=== PATIENT | male | born 1960 | race Caucasian/White ===

== ENCOUNTER 2020-07-05 06:43 | Day surgery (SDC) | payer SELFPAY ==
[2020-06-30 14:26] LABS: Protime INR 1.02
[2020-06-30 14:29] LABS: Absolute Lymphocytes (CBC) 2.6 K/uL (0.7-4.9); Basophils % 0.6 % (0-1.3); Hematocrit 41.1 % (39.6-49.0); Lymphocytes % 39.4 % (15.3-44.8); MPV 9.6 fL (7.6-11.3); RBC Red Blood Cell Count 4.32 M/uL (4.33-5.43)
--- NOTE | 2020-06-30 14:31 | RAD REPORT ---
EXAM DESCRIPTION: RAD - Chest Pa And Lat (2 Views) - 06/30/2020 1:58 pm CLINICAL HISTORY: PRE-OP Chest pain. COMPARISON: No comparisons FINDINGS: The lungs are clear. The heart is normal in size. No displaced fractures. IMPRESSION: No acute or concerning finding suspected.
[2020-07-05] MEDS ORDERED: Ringers Lactate 1,000 ML IV ONE (07:03)
[2020-07-05] MEDS ORDERED: CEFAZOLIN/SWI 2gm 2 GM/20 ML SYR ONE (07:03)
[2020-07-05] MEDS ORDERED: ONDANSETRON 4 MG/2 ML VIAL ONE (07:13)
[2020-07-05] MEDS ORDERED: MIDAZOLAM HCL 2 MG/2 ML INJ ONE (07:27)
[2020-07-05] MEDS ORDERED: FENTANYL CITR 100 MCG/2 ML ONE ×3 (07:29→09:07)
[2020-07-05] MEDS ORDERED: propofoL 200 MG/20 ML VIAL IV ONE (07:29)
[2020-07-05] MEDS ORDERED: LIDOCAINE 1% MPF 5 ML VIAL ONE (07:29)
[2020-07-05] MEDS ORDERED: dexAMETHasone 10 MG/ML VIAL ONE (08:13)
[2020-07-05] MEDS ORDERED: KETOROLAC 30 MG/ML INJ ONE (08:13)
[2020-07-05] MEDS ORDERED: EPHEDRINE SULF 50 MG/ML VIAL ONE ×2 (08:15→08:24)
[2020-07-05] MEDS ORDERED: ROCURONIUM 50 MG/5 ML VIAL IV ONE (08:20)
[2020-07-05] MEDS ORDERED: NA CHLORIDE 0.9% 1,000 ML ONE (08:27)
--- NOTE | 2020-07-05 08:44 | RAD REPORT ---
EXAM DESCRIPTION: RAD - Urethrocystogrphy Retrograde - 07/05/2020 8:30 am CLINICAL HISTORY: ICD N 20.0 FINDINGS: Nine fluoroscopic spot images obtained. Fluoroscopy time 0.2 minutes Ureters were cannulated and contrast administered. Examination was performed by Dr Chavarria. Please re richelle to his report for additional findings
[2020-07-05] MEDS ORDERED: GEMCITABINE HCL 1,000 MG in NA CHLORIDE 0.9% 26.3 ML IVPB ONE (08:45)
[2020-07-05] MEDS ORDERED: NEOSTIGMINE 1 MG/ML -5 ML ONE (09:17)
[2020-07-05] MEDS ORDERED: GLYCOPYRROLATE 0.2 MG/ML SYR ONE (09:17)
[2020-07-05] MEDS ORDERED: PHENAZOPYRIDINE 100MG TAB PO ONE ×2 (09:41→10:07)
[2020-07-05] MEDS ORDERED: HYDROCODONE/APAP 5/325 MG TAB PO PRN (09:41)
[2020-07-05] MEDS ORDERED: OPIUM/BELLADONNA SUPPOS (30-16.2 MG) PR ONE (09:55)
[2020-07-05] MEDS ORDERED: ALBUTEROL 2.5 MG/3 ML NEB SOL ONE (10:02)
--- NOTE | 2020-07-05 10:03 | OP ---
Surgeon: DEWEY SHINE Preoperative Diagnosis: Bladder tumor. Postoperative Diagnosis: Bladder tumor - tumor involving the right posterior region of the bladder a pproximately 5-7 cm in diameter. Procedures: 1.Cystoscopy and bilateral retrograde pyelographies. 2.Transurethral resection of a bladder tumor greater than 5-7 cm. 3.Instillation of intravesical gemcitabine chemotherapy. Indication For Procedure: Mr. Philippe presented to the Urology Clinic with gross hematuria that had been ongoing for over a month. He finally sought urologic evaluation and was diagnosed with a bladde r tumor cystoscopically. An ultrasound had been performed, which revealed normal upper tracts, but w ithout contrast evaluation of the urothelium, that was yet required. He thus was consented for bilat eral retrograde pyelographies, TURBT and intravesical gemcitabine chemotherapy where the risks and si de effects of each approach were discussed including the potential increased reaction to the chemothe rapy to include allergic reactions, increased dysuria or irritability of the bladder, and the unlikel y side effects of hematologic defects from the chemotherapy. Procedure In Detail: The patient was consented in the preoperative holding area before being transfe rred to the operative suite where general anesthesia using an LMA was induced. He was given Ancef IV antimicrobial prophylaxis and pneumo boots were provided for DVT prophylaxis. He was placed in the lithotomy position, padded and secured to the table appropriately. The case was begun using a 22-Kory vth rigid cystoscope to traverse the urethra and into the bladder. The bladder tumor was noted to em anate from the right posterior lateral wall of the bladder, and the ureteral orifices were visualized and free of mucosal lesion surrounding. As a result, the right ureteral orifice was cannulated usin g a 5-Guamanian ureteral access catheter and a retrograde pyelogram was performed. Right retrograde pyelography: Using a 70:30 mixture of Omnipaque and saline, contrast was injected via the lumen of the 5-Guamanian ur eteral access catheter and did propagate easily up a nondilated ureter before entering a sharp collec ting system without evidence of pelvocaliectasis. There were no filling defects along the entirety o f the course of the ureters or within the renal pelvis or the calices. I then turned my attention to the left ureteral orifice, which was similarly cannulated with the 5-Guamanian ureteral access catheter . Again, contrast was injected to perform the left retrograde pyelogram. Left retrograde pyelography: Again, using the 70:30 mixture of Omnipaque and saline, contrast was injected via the 5-Guamanian ureter al access catheter and did propagate up a completely normal ureter before entering a collecting syste m without signs of pelvocaliectasis. There were no filling defects along the entirety of the course from the calices through the renal pelvis and down the ureter. As a result, the 5-Guamanian ureteral ac cess catheter was removed, and the cystoscope was removed. I then inserted a 26-Guamanian bipolar resectoscope under direct vision using a visual obturator into th e bladder with ease. Then using the bipolar loop, the bladder tumor was then resected in levels due to the extensive involvement of the mucosa of the bladder. The initial component of the bladder tumo r to debulk it was sent as a bladder tumor specimen. Subsequently, deeper resections which may have included some muscle tissue within the specimen were sent as a base of bladder tumor, level #1. I th en continued the resection carefully and resected any nodular or dense appearing tissue at the base o f the tumor until all the bladder tumor visible was removed. This was sent as a base of tumor level 2. A careful search of the remainder of the bladder was then undertaken, and no additional papillary tumors were noted throughout. As a result, the bladder was decompressed and any additional bleeding vessels were carefully fulgurated until no oozing of blood was noted even with the bladder completel y decompressed. Pictures were taken of the extent of the tumor, which was extensive involving likely 5-7 cm of the entire right posterior wall of the bladder. I then removed the resectoscope leaving t he bladder full and placed a 20-Guamanian 2-way urethral Ruiz catheter into his bladder with ease. 10 cc was placed into the balloon and his bladder was decompressed off fluid and urine. I then instille d 2 g of gemcitabine and 50 cc of normal saline into his bladder with ease. The catheter was clamped and connected to a leg bag to allow installation for 1-2 hours. The patient was then taken out of t he lithotomy position, awakened from general anesthesia, transferred to a stretcher and then transfer red to the recovery room in good condition. Complications: None. Discharge Disposition: He will maintain the urethral Ruiz catheter for at least 5-7 days to allow h ealing of the bladder due to the extensive nature of the resection. He will be discharged with a pre scription for Bactrim to be taken once a day for the next 7 days or at least 24 hours [address] the [address]ina ter is removed. The chemotherapy will be removed from his bladder between 1-2 hours after its instil lation, and the patient will be rotated by quarter turns for 1 hour while he is in the recovery room once awakened sufficiently. A belladonna and opiate suppository will be provided for local pain cont rol as well as a dose of Pyridium. The patient in addition to the Bactrim will be discharged with a prescription for [place]/Vicodin 5 mg for pain control. Subsequent followup of the pathology will be d etermined to occur in approximately 2-3 weeks if the pathology is not available at the time the patie nt shows for his voiding trial in 5-7 days. GLENDY/SHAHIDA Voice ID: [id number] Report ID: [id number]
[2020-07-05 12:53] VITALS: BP 126/83; TEMP 97.4; O2SAT 96
--- OUTSIDE RECORDS SUMMARY | 2020-07-06 02:44 | XMS REPORT | Continuity of Care Document ---
:1960 Author Organization [facility] t Address [address] [place] [address] Care Team Providers Name Role Phone Unavailable Unavailable Unavailable Problems This patient has no known problems. Allergies, Adverse Reactions, Alerts This patient has no known allergies or adverse reactions. Medications This patient has no known medications. Procedures This patient has no known procedures. Encounters Start End Encounter Admission Attending Care Care Encounter Source Date/Time Date/Time Type Type Clinicians Facility Department ID 2020-06-30 2020-06-[address] [facility] [id number] [facility] 2020-06-17 2020-06-[address] [facility] [id number] [facility] 2020-06-16 2020-06-[address] [facility] [id number] [facility] 2020-05-17 2020-05-17 [id number] Results This patient has no known results.
--- OUTSIDE RECORDS SUMMARY | 2020-07-06 02:45 | XMS REPORT | Continuity of Care Document ---
:1960 Author Organization [facility] t Address [address] [place] [address] Care Team Providers Name Role Phone Unavailable [...] Clinicians Facility Department ID 2020-06-30 2020-06-30 Outpatient [facility] [id number] [facility] 2020-06-17 2020-06-17 Outpatient [facility] [id number] [facility] 2020-06-16 2020-06-16 Outpatient [facility] [id number] [facility] 2020-05-17 2020-05-17 [facility] [id number] Results This patient has no known results.
--- OUTSIDE RECORDS SUMMARY | 2020-07-06 02:45 | XMS REPORT ---
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 314276319 neoplasm of posterior wall of urinary bladder Problem Gross R31.0 Active confirmed 523648717 hematuria Problem Erectile F52.21 Active confirmed [id number] 91 disorder 00 Problem Genital A60.00 Active confirmed [id number] herpes ALLERGIES No Known Allergies ENCOUNTERS from 1960 to 2020-07-01 Encounter Location Date Provider Diagnosis [facility] [address] [address] 04 Jun, 2020 B[facility] Chavar[facility] [address] IMMUNIZATIONS No Information SOCIAL HISTORY Tobacco Use: Social History Observation Description Date Details (start date - stop date) Current Smoker Sex Assigned At : Social History Observation Description Sex Assigned At Unknown Alcohol Screen Question Answer Notes Did you have a drink containing alcohol in the past year? No Points 0 Interpretation Negative Tobacco Use/Smoking Question Answer Notes Are you a current smoker How many cigarettes a day do you smoke? 6-10 How often do you smoke cigarettes? every day REASON FOR REFERRAL No Information VITAL SIGNS No information MEDICATIONS Medication SIG (Take, Route, Notes Start Date End Date Status Frequency, Duration) Tamsulosin HCl 0.4 MG 1 capsule Orally Once a Apr, Jul, Active day for 30 day(s) Losartan Potassium 25 1 tablet Orally Once a Active MG day PROCEDURES No Information RESULTS No Results REASON FOR VISIT No Information Goals Section No Information Health Concerns No Information MEDICAL EQUIPMENT No Information MENTAL STATUS No Information FUNCTIONAL STATUS No Information ASSESSMENTS No Information PLAN OF TREATMENT Next Appt Details Provider Name:Buster Chavarria 08:00:00 AM, [address] [facility], [address] [address], [place], [address],
== END 2020-07-05 11:25 | disposition home or self-care (01) ==
LOC: OR 06:43
PROVIDERS: ATTEND Urology
PROC: 3E0K705 Introduction of Other Antineoplastic into Genitourinary Tract, Via Natural or Artificial Opening (ICD-10-PCS; 2020-07-05)
PROC: 0TBB8ZX Excision of Bladder, Via Natural or Artificial Opening Endoscopic, Diagnostic (ICD-10-PCS; principal; 2020-07-05 07:30)
PROC: BT14ZZZ Fluoroscopy of Kidneys, Ureters and Bladder (ICD-10-PCS; 2020-07-05 07:30)
DX: C67.9 Malignant neoplasm of bladder, unspecified (principal)
CPT/HCPCS: 36415; 51610; 71046; 74450; 80048; 82947; 85025; 85610; 87086; 87088; 88305; 88307; 93005; J0690; J1100; J2250; J2405; J2704; J2710; J3010; J7030; J7120; J9201

== ENCOUNTER 2020-08-27 15:52 | Emergency (ER) | payer OTHER, SELFPAY ==
--- OUTSIDE RECORDS SUMMARY | 2020-08-27 15:55 | XMS REPORT | Continuity of Care Document ---
:1960 Author Organization [facility] t Address [address] [place] [address] Care Team Providers Name Role Phone Tom GARCIAVin Primary Care Physician Vipul Barnes MD Attending Clinician Greyson Vazquez MD Attending Clinician Saul Laboy CRNA Attending Clinician VIPUL BARNES Attending Clinician Unavailable Linden Barnes MD Attending Clinician VIPUL BARNES Admitting Clinician Unavailable Payers Payer Name Policy Type Policy Effective Date Expiration Date Sour ce Number AMBETTERAMBETTER [id number] [id number] - Medical /2020-Present Center Problems Condition Condition Condition Status Onset Resolution Last Treating Co mments Source Name Details Category Date Date Treatment Clinician Date Malignant Malignant Disease Active [facility] neoplasm neoplasm 4- [facility] 00:00: Medical overlappin overlappin 00 Ce nter g sites of g sites of bladder bladder Allergies, Adverse Reactions, Alerts This patient has no known allergies or adverse reactions. Social History Social Habit Start Date Stop Date Quantity Comments Source Sex Assigned At [facility] Exposure to Not sure [facility] - SARS-CoV-2 (event) [facility] Cigarette 2020-08-26 2020-08-26 [facility] - pack-years 00:00:00 00:00:00 [facility] Tobacco use and 2020-08-26 2020-08-26 Never used [facility] - exposure 00:00:00 00:00:00 [facility] Alcohol intake 2020-08-26 2020-08-26 Ex-drinker [facility] [place] [facility] - 00:00:00 00:00:00 (finding) [facility] Cigarettes smoked 2020-08-26 2020-08-26 [facility] - current (pack per 00:00:00 00:00:00 [facility] Center day) - Reported Smoking Status Start Date Stop Date Source Current every day sm[facility] 2020[facility] Medications Ordered Filled Start Stop Current Ordering Indication Dosage Frequency Signature Comments Components Source Medication Medication Date Date Medication? Clinician (SIG) Name Name carvediloL Yes 12.5mg Take 12.[address] [facility] [facility] (COREG) 4-02 mg by [facility] - 12.5 MG 18:54: mouth 2 Medical tablet 20 (two) Center times daily with breakfast and dinner. atorvastati Yes 20mg QD Take [address] [facility] (LIPITOR) 4-02 by mouth Luke [facility] - 20 MG 18:54: daily. Medical tablet [address] losartan Yes 100mg QD Take [address] (COZAAR) 4-02 mg by [facility] - 100 MG 18:54: mouth Medical tablet [address] multivitami Yes 1{capsu QD Take [address] [facility] capsule - le} capsule by Luke [facility] - 18:54: mouth Medical [address] cholecalcif Yes 3000U QD Take 3,[address] susanne, 4-02 Units by [facility] - vitamin D3, 18:54: mouth Medic al [address] (3,000 unit) Tab docusate 2020- Yes 100mg Q.5D Take 1 [facility] sodium -06 30-12 capsule [facility] - (COLACE) 00:00: 23:59 (100 mg Medic al 100 MG 00 :00 total) by Center capsule mouth 2 (two) times daily for 10 days. nitrofurant 2020- Yes 100mg Q.5D Take [address] [facility]in, 08-26-05 capsule [facility] - macrocrysta 00:00: 23:59 (100 mg Me dical l-monohydra 00 :00 total) by [facility] ter te, mouth 2 (MACROBID) (two) 100 MG times capsule daily for 3 days. phenazopyri 2020- Yes 100mg Take [address] dine 08-26 tablet [facility] - (PYRIDIUM) 00:00: 23:59 (100 mg Med ical 100 MG 00 :00 total) by [address] tablet mouth 3 (three) times daily as needed for Pain for up to 3 days. Vital Signs Vital Name Observation Time Observation Value Comments Source Systolic blood 2020-08-26 17:29:00 144 mm[Hg] [facility] Diastolic blood 2020-08-26 17:29:00 77 mm[Hg] [facility] Heart rate 2020-08-26 17:29:00 78 /min [facility] Body temperature 2020-08-26 17:29:00 37 [facility] Respiratory rate 2020-08-26 17:29:00 16 /min [facility] Oxygen saturation in 2020-08-26 17:29:00 96 /min [facility] Arterial blood by Medical Ce nter Pulse oximetry Body height 2020-08-26 11:43:00 188 cm [facility] Body weight 2020-08-26 11:43:00 114.941 kg [facility] BMI 2020-08-26 11:43:00 32.53 kg/m2 [facility] Procedures Procedure Date / Time Performed Performing Clinician [facility] e CYTOLOGY REQUEST 2020-08-26 14:13:10 Kaleb Barnes [facility] Plan of Care Planned Activity Planned Date Details Comments Source Future Scheduled 2021-01-[address] [facility] Test 00:00:00 (Season Ended) [code = [facility] INFLUENZA VACCINE (Season Ended)] Future Scheduled 2020-05-[address] [facility] - Test 00:00:00 (12+) [code = Medical Center DEPRESSION SCREENING (12+)] Future Scheduled 2012 SHINGLES VACCINES ([address] [facility] - Test 00:00:00 of 2) [code = SHINGLES Medic al Center VACCINES (1 of 2)] Future Scheduled [address] [facility] - Test 00:00:00 (procedure) [code = Medical Center [id number]] Future Scheduled 1981 DTAP/TDAP/TD VACCINES [facility] Test 00:00:00 (1 - Tdap) [code = Medical C enter DTAP/TDAP/TD VACCINES (1 - Tdap)] Future Scheduled 1980 HEPATITIS C [facility]CREENING [facility] Test 00:00:00 [code = HEPATITIS C Medical Center SCREENING] Future Scheduled [address] [facility] - Test 00:00:00 0-64 YRS (1 of 1 - Medical C enter PPSV23) [code = PNEUMOCOCCAL VACCINE 0-64 YRS (1 of 1 - PPSV23)] Future Scheduled [address] [facility] - Test 00:00:00 malignant neoplasm of Medica l Center colon (procedure) [code = 345078678] Encounters Start End Encounter Admission Attending Care Care Encounter Source Date/Time Date/Time Type Type Clinicians Facility Department ID 2020-08-23 2020-08-23 Office EVIN Barnes [id number] 13:07:56 13:22:56 Visit Kaleb Linden AMBULATOR [id number] 2020-08-01 2020-08-01 Outpatient [facility] [id number] [facility] 2020-07-18 2020-07-18 Outpatient [facility] [id number] [facility] 2020-07-18 2020-07-18 Outpatient [facility] [id number] [facility] 2020-07-13 2020-07-13 Outpatient [facility] [id number] [facility] 2020-07-11 2020-07-11 [facility] [id number] [facility] 2020-07-01 2020-07-01 [facility] [id number] [facility] 2020-06-30 2020-06-30 [facility] [id number] [facility] 2020-06-17 2020-06-17 [facility] [id number] [facility] 2020-06-16 2020-06-16 [facility] [id number] [facility] 2020-05-17 2020[facility]05-17 [facility] [id number] [facility] Results Test Description Test Time Test Comments Results Result Comments Source CYTOLOGY REQUEST 2020-08-26 18:00:00 Test Item Value Reference Range Interpretation Comme nts Cytology (test code = 2629) See Separate Report [facility] [id number] 18:00:00 Test Item Value Reference Range Interpretation Comments CYTOLOGY RESULT POINTER See Separate Report (LINDY) (test code = 2629)
[2020-08-27] MEDS ORDERED: HYDROCODONE/APAP 10/325 TAB ONE (17:30)
[2020-08-27] MEDS ORDERED: LIDOCAINE VISCOUS 2% SOLN 15 ML UDC ONE (17:37)
[2020-08-27 17:43] LABS: Urine Blood 2+ (Negative); Urine Glucose Trace (Negative); Urine Protein 3+ (Negative); Urine Specific Gravity 1.025 (1.005-1.030)
--- NOTE | 2020-08-27 17:49 | EDPHYS ---
Physician Documentation [facility] Name: Emanuel Philippe Jr Age: 59 yrs Sex: Male : 1960 Arrival Date: 08/27/2020 Time: 15:55 Bed 20 Private MD: ED Physician Taylor Cardona HPI: 08/27 16:45 This 59 yrs old Male presents to ER via Wheelchair with complaints of Urinary cp Retention. 16:45 The patient presents with urinary symptoms, retention. cp 16:45 Onset: The symptoms/episode began/occurred today. Associated signs and symptoms: cp Pertinent positives: abdominal pain, Pertinent negatives: constipation, diarrhea, fever, vomiting. 16:45 Patient reports having procedure yesterday to remove bladder tumors. Patient reports he cp took hill out earlier today and since removing hill has not been able to urinate. Historical: - Allergies: 16:18 No Known Allergies; ca1 - PMHx: 16:18 Bladder Cancer; Sleep Apnea; ca1 - PSHx: 16:18 Appendectomy; ca1 - Immunization history:: Flu vaccine is not up to date. - Social history:: Smoking status: Patient reports the use of cigarette tobacco products, smokes one-half pack cigarettes per day. ROS: 16:55 Constitutional: Negative for body aches, chills, fever, poor PO intake. cp 16:55 Eyes: Negative for injury, pain, redness, and discharge. cp 16:55 Cardiovascular: Negative for chest pain, palpitations. 16:55 Respiratory: Negative for cough, shortness of breath, wheezing. 16:55 : Positive for difficulty urinating, Negative for testicular pain 16:55 Neuro: Negative for altered mental status, headache, weakness. 16:55 All other systems are negative. Exam: 17:00 Constitutional: The patient appears in no acute distress, alert, awake, non-toxic, well cp developed, well nourished, uncomfortable. 17:00 Head/Face: Normocephalic, atraumatic. cp 17:00 Eyes: Periorbital structures: appear normal, Conjunctiva: normal, no exudate, no injection, Sclera: no appreciated abnormality. 17:00 Chest/axilla: Inspection: normal. 17:00 Cardiovascular: Rate: normal. 17:00 Respiratory: the patient does not display signs of respiratory distress, Respirations: normal, no use of accessory muscles, no retractions. 17:00 Abdomen/GI: Inspection: distension, that is mild, Bowel sounds: active, all quadrants, Palpation: soft, in all quadrants, moderate abdominal tenderness, in the suprapubic area, rebound tenderness, is not appreciated, voluntary guarding, is elicited in the suprapubic area. 17:00 Skin: cellulitis, is not appreciated, no rash present. 17:00 Neuro: Orientation: to person, place \T\ time. Mentation: is normal. Vital Signs: 16:11 BP 148 / 93; Pulse 76; Resp 16; Temp 97.6; Pulse Ox 96% on R/A; Weight 113.4 kg (R); ca1 Height 6 ft. 2 in. (187.96 cm) (R); Pain 4/10; 17:32 BP 151 / 80; Pulse 78; Resp 16; Pulse Ox 100% on R/A; zb 16:11 Body Mass Index 32.10 (113.40 kg, 187.96 cm) ca1 MDM: 16:48 Patient medically screened. cp 17:00 Differential diagnosis: UTI, urinary retention, prostatitis, urethritis. cp 17:48 Data reviewed: vital signs, nurses notes, results of bladder scan show 184 ccs of urine cp in bladder. 17:48 ED course: VSS. Hill placed and approximately 400 ccs of urine observed in bag. Will cp discharge to home for continued monitoring. Patient currently taking oral Cipro. 08/27 16:50 Order name: Urine Microscopic Only cp 08/27 17:43 Order name: Urine Dipstick-Ancillary; Complete Time: 17:49 EDMS 08/27 17:49 Interpretation: Normal except: UKET Trace; UBLD 2+; UPROT 3+; U NIT Positive. cp 08/27 16:48 Order name: Bladder Scanner: pre and post void; Complete Time: 17:10 cp 08/27 16:48 Order name: Hill Leg Bag; Complete Time: 17:31 cp / 16:50 Order name: Urine Dipstick-Ancillary (obtain specimen); Complete Time: 17:31 cp Administered Medications: 17:15 Drug: HYDROcodone-acetaminophen 10 mg-325 mg 1 tabs {Note: RASS +1.} Route: PO; zb 17:50 Follow up: Response: No adverse reaction; Pain is decreased; RASS: Alert and Calm (0) zb Disposition: 08/27/20 17:48 Discharged to Home. Impression: Retention of urine. - Condition is Stable. - Discharge Instructions: Hill Catheter Care, Adult, Acute Urinary Retention, Male. - Medication Reconciliation Form, Thank You Letter, Antibiotic Education, Prescription Opioid Use form. - Follow up: Private Physician; When: 1 - 2 days; Reason: Recheck today's complaints. - Problem is new. - Symptoms have improved. Addendum: 08/28/2020 18:43 Co-signature as Attending Physician, Taylor Cardona MD. m a2 Signatures: Dispatcher [employer] EDMS Nicolas Song PA PA cp Taylor Cardona MD MD ma2 Wendy Momin RN RN ca1 Claire Muniz RN RN zb Corrections: (The following items were deleted from the chart) 08/27 16:49 16:48 This 59 yrs old Male presents to ER via Wheelchair with complaints of cp Urinary Retention. cp 18:01 17:48 08/27/2020 17:48 Discharged to Home. Impression: Retention of urine. Condition is zb Stable. Forms are Medication Reconciliation Form, Thank You Letter, Antibiotic Education, Prescription Opioid Use. Follow up: Private Physician; When: 1 - 2 days; Reason: Recheck today's complaints. Problem is new. Symptoms have improved. cp 08/28 14:39 08/27 17:48 ED course: VSS. Hill placed and approximately 400 ccs of urine observed in cp bag. Will discharge to home for continued monitoring. cp
--- NOTE | 2020-08-27 17:49 | ER ---
Nurse's Notes [facility] Name: Emanuel Philippe Jr Age: 59 yrs Sex: Male : 1960 Arrival Date: 08/27/2020 Time: 15:55 Bed 20 Private MD: Diagnosis: Retention of urine Presentation: 08/27 16:11 Chief complaint: Patient states: Had surgery at [facility] yesterday to scrape cancer ca1 tumors out of the bladder. Was on Ruiz Cath, and had removed 2 - 3 hrs ago as directed. Feels like my bladder is full and not relieving myself, there's also pain with urination. Coronavirus screen: Client denies travel out of the [place] in the last 14 days. At this time, the client does not indicate any symptoms associated with coronavirus-19. Ebola Screen: Patient negative for fever greater than or equal to 101.5 degrees Fahrenheit, and additional compatible Ebola Virus Disease symptoms Patient denies exposure to infectious person. Patient denies travel to an Ebola-affected area in the 21 days before illness onset. No symptoms or risks identified at this time. Initial Sepsis Screen: Does the patient meet any 2 criteria? No. Patient's initial sepsis screen is negative. Does the patient have a suspected source of infection? No. Patient's initial sepsis screen is negative. Risk Assessment: Do you want to hurt yourself or someone else? Patient reports no desire to harm self or others. Onset of symptoms was August 27, 2020. 16:11 Method Of Arrival: Wheelchair ca1 16:11 Acuity: REYNALDO 3 ca1 Historical: - Allergies: 16:18 No Known Allergies; ca1 - PMHx: 16:18 Bladder Cancer; Sleep Apnea; ca1 - PSHx: 16:18 Appendectomy; ca1 - Immunization history:: Flu vaccine is not up to date. - Social history:: Smoking status: Patient reports the use of cigarette tobacco products, smokes one-half pack cigarettes per day. Screenin:49 Abuse screen: Denies threats or abuse. Denies injuries from another. Nutritional zb screening: No deficits noted. Tuberculosis screening: No symptoms or risk factors identified. Fall Risk None identified. Assessment: 17:20 General: Appears uncomfortable, Behavior is anxious, fussy. Pain: Complains of pain in zb abdomen and pelvis Pain currently is 10 out of 10 on a pain scale. Quality of pain is described as aching, sharp, Pain began 1 day ago. Neuro: Level of Consciousness is awake, alert, obeys commands, Oriented to person, place, time, situation. Cardiovascular: Capillary refill < 3 seconds in bilateral fingers Patient's skin is warm and dry. Respiratory: Airway is patent Respiratory effort is even, unlabored, Respiratory pattern is regular, symmetrical. GI: Abdomen is distended, obese, Bowel sounds present X 4 quads. : Reports inability to void, pain. Derm: Skin is intact, Skin is dry, Skin is normal, Skin temperature is warm. Musculoskeletal: Range of motion: intact in all extremities. 17:32 Reassessment: Ruiz catheter placed by non morse intercept technician. zb 17:49 Reassessment: ECP at bedside discussing care with patient. zb Vital Signs: 16:11 BP 148 / 93; Pulse 76; Resp 16; Temp 97.6; Pulse Ox 96% on R/A; Weight 113.4 kg (R); ca1 Height 6 ft. 2 in. (187.96 cm) (R); Pain 4/10; 17:32 BP 151 / 80; Pulse 78; Resp 16; Pulse Ox 100% on R/A; zb 16:11 Body Mass Index 32.10 (113.40 kg, 187.96 cm) ca1 ED Course: 15:55 Patient arrived in ED. as 16:16 Triage completed. ca1 16:18 Arm band placed on right wrist. ca1 16:42 Nicolas Song PA is PHCP. cp 16:42 Taylor Cardona MD is Attending Physician. cp 17:03 Patient has correct armband on for positive identification. Bed in low position. Call mh5 light in reach. Side rails up X 1. Pulse ox on. NIBP on. 17:03 Bladder scan completed. 184. mh5 17:10 Claire Muniz, LEDY is Primary Nurse. zb 17:49 Ruiz cath inserted, using sterile technique, 16 Fr., by trolley worker, balloon inflated, to zb gravity drainage, urine specimen collected. Patient tolerated well. 17:49 No provider procedures requiring assistance completed. Patient did not have IV access zb during this emergency room visit. Administered Medications: 17:15 Drug: HYDROcodone-acetaminophen 10 mg-325 mg 1 tabs {Note: RASS +1.} Route: PO; zb 17:50 Follow up: Response: No adverse reaction; Pain is decreased; RASS: Alert and Calm (0) zb Outcome: 17:48 Discharge ordered by . [email or web address] 17:50 Discharged to home ambulatory. zb 17:50 Condition: stable 17:50 Discharge instructions given to patient, Instructed on discharge instructions, follow up and referral plans. Demonstrated understanding of instructions, follow-up care. 18:01 Patient left the ED. zb Signatures: Nga Aguilar Corey, PA PA cp Martinez, Maria mh5 Wendy Momin RN RN ca1 Claire Muniz RN RN zb Corrections: (The following items were deleted from the chart) 17:51 17:15 HYDROcodone-acetaminophen 10 mg-325 mg 1 tabs PO zb zb
[2020-08-27 18:07] LABS: Urine Bacteria <20 /HPF (NONE SEEN)
[2020-08-27 20:21] VITALS: TEMP 97.6
[2020-08-27 20:23] VITALS: BP 151/80; O2SAT 100
== END 2020-08-27 18:01 | disposition home or self-care (01) ==
LOC: ER 15:52
DX: R33.9 Retention of urine, unspecified (principal); G47.30 Sleep apnea, unspecified; F17.210 Nicotine dependence, cigarettes, uncomplicated; C67.9 Malignant neoplasm of bladder, unspecified
CPT/HCPCS: 51702; 81003; 81015; 87086; 87088; 99284

== ENCOUNTER 2020-09-22 13:11 | Day surgery (SDC) | payer OTHER, SELFPAY ==
[2020-09-22] MEDS ORDERED: FENTANYL CITR 100 MCG/2 ML ONE (13:36)
[2020-09-22] MEDS ORDERED: propofoL 200 MG/20 ML VIAL IV ONE (13:36)
[2020-09-22] MEDS ORDERED: MIDAZOLAM HCL 2 MG/2 ML INJ ONE (13:36)
[2020-09-22] MEDS ORDERED: LIDOCAINE 1% MPF 5 ML VIAL ONE (13:36)
[2020-09-22] MEDS ORDERED: Ringers Lactate 1,000 ML IV ONE (13:43)
[2020-09-22] MEDS ORDERED: HEPARIN 5000 UNIT/ML 1 ML VIAL ONE (14:06)
[2020-09-22] MEDS ORDERED: NS 0.9% VIAL 20 ML ONE ×2 (14:06→14:18)
[2020-09-22] MEDS ORDERED: ACETAMINOPHEN 500 MG TAB ONE (14:08)
[2020-09-22] MEDS ORDERED: CEFAZOLIN/SWI 1gm 1 GM/10 ML SYR ONE (14:08)
[2020-09-22] MEDS ORDERED: LIDOCAINE 1% W/EPI 1:100,000 MDV 20 ML VIAL ONE (14:09)
[2020-09-22] MEDS ORDERED: NS 0.9% VIAL 10 ML ONE (15:03)
[2020-09-22] MEDS ORDERED: EPHEDRINE SULF 50 MG/ML VIAL ONE (15:03)
[2020-09-22] MEDS ORDERED: KETOROLAC 30 MG/ML INJ ONE (15:05)
[2020-09-22] MEDS ORDERED: GLYCOPYRROLATE 0.2 MG/ML SYR ONE (15:14)
--- NOTE | 2020-09-22 15:30 | P.OP ---
Preoperative diagnosis: Bladder Cancer Postoperative diagnosis: Bladder Cancer Primary procedure: Placement of Chemotherapy Port (portacath) Secondary procedure: ultrasound and flouroscopy with interpretation Anesthesia: GETA + Local Estimated blood loss: <5cc Specimen: none Findings: imaging confirmed position Complications: None Implants: port a cath Transferred to: Recovery Room Condition: Good
--- NOTE | 2020-09-22 15:51 | RAD REPORT ---
EXAM DESCRIPTION: RAD - Fluoroscopy <1 Hour - 09/22/2020 3:34 pm FINDINGS: A total of 15 portable C-arm views were submitted from a fluoroscopic assisted placement o f a vascular access catheter. Images show stepwise placement procedure. No suspicious or unexpected f indings. Fluoro time was 0.1 minutes with a cumulative dose of 4.26 mGy.
--- NOTE | 2020-09-22 16:32 | RAD REPORT ---
EXAM DESCRIPTION: RAD - Chest Single View - 09/22/2020 4:03 pm CLINICAL HISTORY: s/p port a cath COMPARISON: Two view chest June 30 TECHNIQUE: AP portable chest image was obtained 09/22/2020 4:03 pm . FINDINGS: Lung volumes are low accentuating the lung parenchymal pattern. No pneumothorax. Right-christopher ed Port-A-Cath has been placed. Tip is in the mid SVC. Trachea is midline. No pleural effusion. IMPRESSION: A right-sided Port-A-Cath in good position. Tip in mid SVC. No pneumothorax.
[2020-09-22 17:08] VITALS: BP 138/89; TEMP 96.1; O2SAT 94
--- NOTE | 2020-09-23 01:19 | OP ---
Date of Procedure: 09/22/2020 Surgeon: Moira Cain MD, Preoperative Diagnosis: Bladder cancer. Postoperative Diagnosis: Bladder cancer. Procedure Performed: Placement of a chemotherapy port - Port-A-Cath using fluoroscopy and ultrasound guidance with interpretation and microintroducer set also utilized. Anesthesia: General endotracheal plus local with 0.25% Marcaine. Estimated Blood Loss: Less than 5 mL. Specimen: None. Findings: Imaging confirmed position, dark red nonpulsatile blood return. Complications: None. Implants: Port-A-Cath. Disposition: The patient was transferred to recovery room in good condition. Procedure In Detail: After informed consent was obtained, the patient was brought to the operating r oom, prepped and draped in the usual sterile fashion. After adequate anesthesia was achieved, the pa tient was placed in steep Trendelenburg position. At this point using ultrasound guidance, I cannula moira the right internal jugular vein on first attempt. Using a microintroducer set, micro wire was ad vanced. Fluoroscopy confirmed position into the confluence of the superior vena cava. At this point , a small ac incision was made over the insertion site and a microintroducer sheath was placed. Mi hat brim and crown laminating operator wire was removed. Standard wire was then advanced and position confirmed also with fluoroscopy a t this point. I then removed the microintroducer sheath and left wire in place. At this point, I si zed the area on the chest wall, appropriate distance inferolateral to the clavicle. I anesthetized t he skin and the entire tract between the insertion site and the port site with 0.25% Marcaine. I the n incised the skin and using a tunneling device, tracked the port tubing through the insertion site. At this point, I sized the catheter using fluoroscopy and found that approximately 25 cm will be a g ood length based on scar position. At this point, I removed some prepectoral fat to expose the prepe ctoral fascia. I then attached the button/port using the lock collar at this point and flushed quite easily. I confirmed position once again with fluoroscopy after placing it in the chest wall. I the n secured it after confirmation of position was ensured. I placed it in the pocket created and ultim ately secured it to the chest prepectoral fascia using interrupted 3-0 Prolene sutures circumferentia lly around. I then flushed the catheter once again with saline and packed it with heparin at this po int. The patient was then taken out of Trendelenburg position. At this point, the wounds were copio usly irrigated and dried. The deep dermal plane was closed using interrupted 3-0 Vicryl suture on th e chest wall and the skin was closed with 4-0 Monocryl in a running fashion, Dermabond placed over to p. This skin insertion site on the right internal jugular was irrigated once again, dried and closed with interrupted 3-0 nylon suture and a sterile dressing placed over top. The patient tolerated the procedure well without evidence of complication, transferred to PACU in good condition. All counts were correct at the end of the case. A stat chest x-ray will be performed to confirm position in the recovery room. KLEVER/SHAHIDA Voice ID: [id number] Report ID: [id number]
== END 2020-09-22 16:45 | disposition home or self-care (01) ==
LOC: PRE 13:11
PROVIDERS: ATTEND Surgery
PROC: 05HM33Z Insertion of Infusion Device into Right Internal Jugular Vein, Percutaneous Approach (ICD-10-PCS; principal; 2020-09-22 13:00)
DX: C67.9 Malignant neoplasm of bladder, unspecified (principal); Z20.822 Contact with and (suspected) exposure to COVID-19
CPT/HCPCS: 71045; 76000; 36561; U0003; J2704; J1644 ×3; J2250; J3010; J0690; J7120; C1788

== ENCOUNTER 2020-10-05 15:33 | Emergency (ER) | payer OTHER, SELFPAY ==
--- OUTSIDE RECORDS SUMMARY | 2020-10-05 15:36 | XMS REPORT | Continuity of Care Document ---
:1960 Author Organization [facility] t Address [address] [place] [address] Care Team Providers Name Role Phone Vin Santos DO Primary Care Physician VIPUL BARNES Attending Clinician Unavailable Vipul Barnes MD Attending Clinician Greyson Vazquez MD Attending Clinician Saul Laboy CRNA Attending Clinician Linden Barnes MD Attending Clinician VIPUL BARNES Admitting Clinician Unavailable Payers Payer Name Policy Type Policy Effective Date Expiration Date Sour ce Number AMBETTERAMBETTER [id number] [id number] 00:00[facility]00 - Medical /2020-Present Center Problems Condition Condition Condition Status Onset Resolution Last Treating Co mments Source Name Details Category Date Date Treatment Clinician Date Malignant Malignant Disease Active [facility] neoplasm neoplasm 08-26 [facility] 00:00: Medical overlappin overlappin 00 Ce nter g sites of g sites of bladder bladder Allergies, Adverse Reactions, Alerts This patient has no known allergies or adverse reactions. Social History Social Habit Start Date Stop Date Quantity Comments Source Sex Assigned At [facility] Cigarettes smoked 2020-08-29 2020-08-29 [facility] day[facility] - Reported Cigarette 2020-08-29 2020-08-29 R[facility] Modi - pack-years 00:00:00 00:00:00 [facility] Tobacco use and 2020-08-29 2020-08-29 Never used RODDY Lion kes - exposure 00:00:00 00:00:00 [facility] Alcohol intake 2020-08-29 2020-08-29 Ex-drinker [facility] [place] [facility] - 00:00:00 00:00:00 (finding) [facility] Smoking Status Start Date Stop Date Source Current every day smoker 2020-08-29 00:00:[address] [facility] Medications Ordered Filled Start Stop Current Ordering [...] 20 MG 18:54: daily. Medical tablet 20 [place] losartan Yes 100mg QD Take [address] (COZAAR) 4-02 mg by [facility] - 100 MG 18:54: mouth Medical tablet 20 daily. [place] multivitami Yes 1{capsu QD Take [address] n capsule 4-02 le} capsule by Luke s - 18:54: mouth Medical 20 daily. [place] cholecalcif Yes 3000U QD Take 3,[address] susanne, 4-02 Units by [facility] - vitamin D3, 18:54: mouth Medic al 75 mcg 20 daily. [place] (3,000 unit) Tab docusate 2020- No 100mg Q.5D Take 1 [facility] sodium 4-02 04-12 capsule [facility] - (COLACE) 00:00: 23:59 (100 mg Medic al 100 MG 00 :00 total) by Center capsule mouth 2 (two) times daily for 10 days. nitrofurant 2020- No 100mg Q.5D Take [address] [facility]in, 08-26 capsule [facility] - macrocrysta 00:00: 23:59 (100 mg Me dical l-monohydra 00 :00 total) by [facility] ter te, mouth 2 (MACROBID) (two) 100 MG times capsule daily for 3 days. phenazopyri No 100mg Take [address] dine 08-26 tablet [facility] - (PYRIDIUM) 00:00: 23:59 (100 mg Med ical 100 MG 00 :00 total) by [place] tablet mouth 3 (three) times daily as needed for Pain for up to 3 days. Vital Signs Vital Name Observation Time Observation Value Comments Source Systolic blood 2020-08-26 17:29:00 144 mm[Hg] [facility] Diastolic blood 2020-08-26 17:29:00 77 mm[Hg] [facility] Heart rate 2020-08-26 17:29:00 78 /min [facility] Body temperature 2020-08-26 17:29:00 37 Sara [facility] Respiratory rate 2020-08-26 17:29:00 16 /min [facility] Oxygen saturation in 2020-08-26 17:29:00 96 /min [facility] Arterial blood by Medical Ce nter Pulse oximetry Body height 2020-08-26 11:43:00 188 cm [facility] Body weight 2020-08-26 11:43:00 114.941 kg [facility] BMI 2020-08-26 11:43:00 32.53 kg/m2 [facility] Procedures Procedure Date / Time Performed Performing Clinician [facility] e TISSUE EXAM 2020-08-26 14:35:00 Kaleb Barnes [facility] CYTOLOGY REQUEST 2020-08-26 14:13:10 Kaleb Barnes [facility] CYTOLOGY 2020-08-26 14:13:00 Kaleb Barnes [facility] CYSTOSCOPY,BLADDER 2020-08-26 13:13:00 Kaleb Barnes [facility] - BIOPSY [facility] CYSTOSCOPY,TURBT 2020-08-26 13:13:00 Betty Barnesceline [facility] CYSTOSCOPY,TRANSURETHR 2020-08-26 13:13:00 Betty Barnesceline Matthew [facility] - AL RESECTION BLADDER Medical [facility] ter NECK ECG 12-LEAD 2020-08-26 11:08:28 Unknown, Hl7 Doctor [facility] Plan of Care Planned Activity Planned Date Details Comments Source Future Scheduled Test 2021-01-[address] [facility] - 00:00:00 (Season Ended) [code = [facility] INFLUENZA VACCINE (Season Ended)] Future Scheduled Test 2020-05-[address] [facility] - 00:00:00 (12+) [code = [facility] DEPRESSION SCREENING (12+)] Future Scheduled Test 2012 SHINGLES VACCINES ([address] [facility] - 00:00:00 of 2) [code = SHINGLES [facility] VACCINES (1 of 2)] Future Scheduled Test [address] [facility] - 00:00:00 (procedure) [code = [facility] [id number]] Future Scheduled Test 1981 DTAP/TDAP/TD VACCINES [facility] - 00:00:00 (1 - Tdap) [code = Medical C enter DTAP/TDAP/TD VACCINES (1 - Tdap)] Future Scheduled Test 1980 HEPATITIS C [facility]CRE[facility]ING [facility] - 00:00:00 [code = HEPATITIS C [facility] SCREENING] Future Scheduled Test [address] [facility] - 00:00:00 0-64 YRS (1 of 1 - Medical C enter PPSV23) [code = PNEUMOCOCCAL VACCINE 0-64 YRS (1 of 1 - PPSV23)] Future Scheduled Test 1960 [facility] malignant neoplasm of [facility] colon (procedure) [code = 018342751] Future Appointment 2021-01-04 Kaleb Barnes MD, [address] [facility] - 08:00:[address], [place] [address] Future Appointment 2020-12-16 Kaleb Barnes MD, [address] [facility] - 09:08:00 [facility]; [facility], [place] [address] Future Appointment 2021-01-04 Kaleb Barnes MD, [address] [facility] - 08:00:00 [facility]; [facility], [place] [address] Future Appointment 2020-12-16 Kaleb Barnes MD, [address] [facility] - 09:08:00 [facility]; [facility], [place] [address] Encounters Start End Encounter Admission Attending Care Care Encounter Source Date/Time Date/Time Type Type Clinicians Facility Department ID 2020-09-07 2020-09-07 Outpatient [facility] [id number] [facility] 2020-09-02 2020-09-02 Outpatient [facility] [id number] [facility] St 00:00:00 00:00:00 [facility] 2020-08-23 2020-08-23 Office EVIN Barnes [id number] 13:07:56 13:22:56 Visit Kaleb Linden AMBULATOR [id number] 2020-08-01 2020-08-01 Outpatient [facility] [id number] [facility] 2020-07-18 2020-07-18 Outpatient [facility] [id number] [facility] 2020-07-18 2020-07-18 Outpatient [facility] [id number] [facility] 2020-07-13 2020-07-13 Outpatient [facility] [id number] [facility] 2020-07-11 2020-07-11 Outpatient [facility] [id number] [facility] 2020-07-01 2020-07-01 [facility] [id number] [facility] 2020-06-30 2020-06-30 Out[facility] [id number] [facility] 2020-06-17 2020-06-17 Outpatient [facility] [id number] [facility] 2020-06-16 2020-06-16 Out[facility] [id number] [facility] 2020-05-17 2020-05-17 Outpatient [facility] [id number] [facility] Results Test Description Test Time Test Comments Results Result Comments Source Cytology 2020-09-28 16:45:00 Test Item Value Reference Range Interpretation Comme nts Case Report (test code = 104) Medical Cytology Report Case: [id number] Authorizing Provider: Kaleb Barnes MD Collected: 08/26/2020 02:13 PM Ordering Location: [facility] PERIOPERATIVE Received: 08/26/2020 04:20 PM SERVICES Pathologist: Art Brand MD Specimen: Urine, Bladder Wash DIAGNOSIS (test code = 3220) r4qrpCOuTHUahUJ3CsHmXEUia9mnu5DjiDHlyQ Fy LBosuUFardZqrg85bBM9gL85RU2eFOKqRmU1AEWx bbT4Vlp6XOKuJJOnzDPkO714r9ved3xkkeVfuDT9 fVxwYXJkXHBsYWluXGZzMjAgVVJJTkUsIEJMQURE WGCfC8ELXSlMB7RjJFKFTD8WDAxYUjc4QMqdwfRl EQBgJJKHHNxETMlRLPPQYHBRJ3QZKAhNXUhbUrAY NUbZM1nPEHfLVR7NGJRULMDpaRIqWPSkVV6nNFAY CHFzUN4QAYRSCOHTNP6YCYKELEKFWSDCDZiHFJEV RYLOF0RQOSNocuoqvrYuYVUbJvz9MBYpqZAaSCDx Plk8ZLPtoAVnbM== COMMENT (test code = 335) t1tqoQXoQBBpgOF7NzBiYWShf6lrn3PrtFPexASa UZnbaVMvvzLgbm54jIE7rE58VV6iIRSzJpE2XXIw esU2Oou7WXPtCDHiyTIcA570z7ynb7ngfuLvnFA6 sQcpMYGuVUAoVHmhAIKeVuGuJVwiHJHpDQ6wwJCx rORgjmPjg2K1VPWspX6mJ18fyoEtsUFxPZT3rY5a zsZtoJnvSEXxpd4xBImjXELmGKWlkSPhiy4awFMy RMGsf4GbBPizEQSkuJ5pBYHnqE63IKNiJgKeqCK5 oCKsBYezO00oo0ygGNnwibUpEeloHCQtKFjiIFAw KLEoHMFnjSPewABpbKQgGUIfy5rwO7foK8XkVGDC MjEtMDQwNjFccGFyfQ== CPT Code(s) (test code = 8278) a4asfXGnRGRbpNS6LsJbGLPua3esx3GjfBNh cGFy WJoxxFWahgAuxp93vOB8bE41YY4vGJWfFtI2VGMl ieM9Kzm7UIKoUNImrLHfC520o9lsx8jqggNeuYP6 fVxwYXJkXHBsYWluXGZzMjAgODgxMDhccGFyfQ== CLINICAL DATA (test code = 6967) m3pgoFDgATEgzNM5CfLzDHHlx1suf5MttM BncGFy HHuljBNcvnQwfq82eOL9tX41CY3vMXCjXnL7FLPj hfJ3Ula8FJKuVFGkfMIiW248g6glh3eunvYgjHQ3 wWfkDGHzEXMsAOxoPLLtVuEvQ2ZflOOzONWat8Wq C8qavW3kE50gvAgfsWmspA6pkYTrXmQstBAqHZCz AYRyglNpujjaNSALTXNgY71cWRMhz5GwAMqwWQgZ AIxdxaRitrXyHB99wpP4LqOxqC2ayXckDJ4tJXer a4ZyCNfaoPL8bAGuCCOqcVQitJ== SPECIMEN SOURCE (test code = 3377) r7xgxEPyQWWjfEE0FaDjDZOzi2eqq5Ra dHBncGFy VTknhJExvmYtis46fMG1qK39IX8yFRZaGrQ9UMQz snC1Qkx6TNXyRQTahAZfG132t0kyn4whpeCnhHA8 fVxwYXJkXHBsYWluXGZzMjAgVVJJTkUsIEJMQURE TQVqK0PVKBoQM6DbbZDomA== GROSS DESCRIPTION (test code = 3366) b9sglSCkOETmdPD4LiNmGXDvs0fks3 BsdHBncGFy JBavxMUssyQard97zST8vN93WQ7wQNWoMbW5ZVTi usQ9Tzg0EKEwAXOgnUBiW263s0osx2bgsqPczYC2 eIohECWrQCAeJMbhWJQtTwFoFPVyHY9fbzEtoW8u FI54pQ0xVAHkHnv5jAT0FWDeU1b4m2KagU8gTTOb cn0= MICROSCOPIC DESCRIPTION (test code = h5epcBOzAUOsjOG2PiGdCDMmf1upd2 BsdHBncGFy 3371) EKnfeNFkwaQwvw61zOE2qB08UO7xAKNiBjS5IMDu ynS1Nhf8SCVpTYNapVGkN636n5qxl0ffqtPkhID3 iFgtUNImRTXbDSbwMSLyHiZxECWrMk1hzNXlSlPa cGFyfQ== STATEMENT OF ADEQUACY (test code = Satisfactory 2757) Gross assessment was performed at (test [facility] enter, code = 2777) Department of Pathology, [address] [place] [address], Technical component was performed at [facility] er, (test code = 2778) Department of Pathology, [address] [place] [address], Professional component was performed at [facility] enter, (test code = 2779) Department of Pathology, [address] [place] [address], [facility] 16[facility]45:00Medical Cytology Report Case: [id number] Aut horizing Provider: Kaleb Barnes MD Collected: 08/26/2020 02:13 PM Ordering Location: [facility] PERIOPERATIVE Received: 08/26/2020 04:20 PM SERVICES Pathologist: Art Brand MD Specimen: Urine, Bladder Wash URINE, BLADDER WASHINGS (CYTOSPINS): - HIGH GRADE UROTHELIAL NEOPLASIA IDENTIFIED - ACUTE INFLAMMATION AND REACTIVE CHANGES Amendment electronically signed by Art Brand MD on 09/28/2020 at 4:45 PM The amendment is issued to correct a typographic error in the diagnosis ("not" is being removed from the diagnosis line).Please see surgical pathology case [id number] post cystoscopy, history of bladder cancer, HTN, agoraphobia, HLD whopresents w/3 months of gross hematuria URINE, BLADDER [id number] mls blood-tinged fluid; 4 cytospins Performed. [facility], Department of Pathology, [address] [place] [address], [facility], Department of Pathology, [address] [place] [address], [facility], Department of Pa thology, [address] [place] [address], Tvqruq Exam 2020-08-29 16:36:00 Test Item Value Reference Range Interpretation Comments Case Report (test code Surgical Pathology = 104) Report Case: [id number] Authorizing Provider: Kaleb Barnes MD Collected: 08/26/2020 02:35 PM Ordering Location: [facility] PERI[facility] Received: 08/26/2020 03:53 PM SERVICES Pathologist: Torres Carias MD Specimens: A) - Bladder Tumor, TUR PAPILLARY TUMOR RIGHT LATERAL B) - Bladder Tumor, RE- RESECTION OF RIGHT POSTERIOR WALL TUMOR C) - Bladder Biopsy, POSTERIOR MIDLINE D) - Bladder Biopsy, LEFT LATERAL E) - Bladder Biopsy, DOME F) - Bladder Biopsy, RIGHT LATERAL G) - Bladder Biopsy, TRIGONE H) - Prostatic, TUR PROSTATIC URETHRA DIAGNOSIS (test code = m0ljoRRpIKSrv2ljFPJwjXW 3220) uZzEwMzNcZnRuYmpcdWMxIH tccnRmMVxlcGljOTIwMlxhb dBmTHRhzFSwT5YxkuxvYPze TS6eAU5gsWpumNKpmTJvJGP iGsLww2bht706iHJje0ieBU SGzjyhuIy6aRsbC02ep1S9P bpkF9wzUQCwDBMnH4MqKZ3a MEVdWje0UPW2KRs4SXSxvbR pdNnpvL1oNrRtYBMETqMAWQ FEREVSLCBSSUdIVCBMQVRFU eMJXGSYGGSEN6hGTotmyNXv ICAgICAtIFBBUElMTEFSWSB OUg4NWWJYWEMWSELJKhUONa 9NQSwgSElHSCBHUkFERSAoV 7dNWYIdHSWAA58tQM2RIWGU HbMmwNDaDJZrEFXtXW4CZ0N VTEFSSVMgUFJPUFJJQSBOT1 JkKKDOS3OKUYUlcLJoIRJzP 2JwYXQxXHBhciBCLiBCTEFE KOBOYZUBPYeAQPYAL7AVMPV VW1KzF2GVOSTLCU3PYqwvZT ZTWhJ3HMJmxzzqyHJowGR5Z CAgICAgLSBQQVBJTExBUlkg VVJPVEhFTElBTCBDQVJDSU5 TYVAjUGcJU4seH3DAQBYvCI vWKpXqBRirNo9GRCeRZnRIV VZFXHBhciAgICAgLSBNVVND LUkAFdzHMXXAL2ZLBQDpAOP VG4NLHGdsBMIsW2peIvTrvS NxYPCbOY0gBWFXCvfZYIrMC HUXN1UTEGRHNNRZQKMCDR0N KJFcQIEFV9SYYBqqJPNqgNN yIEMuIEJMQURERVIsIFBPU1 NWZunBAdXYUUBJXE0MALPDV H9HH2l9UUGysxp+KZ9bsbt+ EYSVNlXANTYNW8aYI9tZUGJ IEImZX5OAH3gcLQDfzgk+XH 5mvy5zYVCDQ4TEGLIFWzLXM r6UFicBAVgZIC1LWPSINoKF MC7KQLTeilrjLMJdXM5hLgt BRERFUiwgTEVGVCBMQVRFUk ZUKXFXDK9QK0y0CTCjkkf+X H5cflx+YHXAEuDCEQINV4iD L3bIFMZJCZwAO3WOW0hkHQS cflx+AF8okb1sRFBEO2CLWX XRYyYWDf4ADghIHBwBHYBSG VNFTlRccGFyXHBhciBFLiBC TBDGBTODTFPGJ30DEXRYBB0 JX6a1OWYynlf+MK8eibv+LS RLTdFLURLQF4yXR0rBVXQIW FvRT4XQR1enNZDnbwy+XH5c xe0lEEPJU5OWRASOFvBDYr4 QUklBIElTIFBSRVNFTlRccG FyXHBhciBGLiBCTEFEREVSL CBSSUdIVCBMQVRFUkFMLCBC OO4ZN0f5LRlaJIPxTCFzKL3 gVVJPVEhFTElBTCBDQVJDSU 0JUFUjTM1fQ3sFNGgbZVLua lx+ZH4bjn2xGNUDU3AVQSID IcCTVw2QGzrURTmQWRQSZRG FTlRccGFyXHBhciBHLiBCTE OLTEAGHSPNIeiZX60CNDSVP K8DF5a7BILcgge+RU7ltnd+ XQBQDBdMVFQJIe3UGUJtLW5 EBNYHAVEMMQ9AIASAHCjZAF bUYDNEG3HuBGuRYRfGF1kXM W3CVG1ISFwGTzKNA4jtuUMa IK8pnkg+LL9tBK0IZ2OHNTT SSVMgUFJPUFJJQSBJUyBQUk KMCV7DXAVjushiVCMpKR1oR DJNF8YWALbQDILCTAWFNcDu YDEADG1SJDAKJEuNNUbmWee PUFNZXHBhciAgICAgLSBCRU 2CP93gSQBJY6TEXJxXEBLMZ 3FFCNffPQWcXASeYE5fTdPE UFSDIrHuYg1SYCGBY1NTBUZ ZJCDMPwLLPHmAR39RAuKQJW Xpbz78MOX3VvPem2C1ANG9P LFdOQStt0lfUKVfzOTzWhEk MzNcZnRuYmpcdWMxXGRlZmY lc6wql106wZFar1oiNJLvBf D0bFTiJLQqcYItN928MFOjP Dlfu7hqi4BqUHWkiMFiq2I2 NOQAmdtmrWk5iYrsZ23wv7H 1UcbaN4wmZCHvWGLeS4WrIL 1fTNSiPls1PZE4VFZ3AIDmG PPzC0QiGS1rITLqsFGgTFh7 q9uptHjaJONwNBK2x9zpSVj gdzOlPH7zge5iwMj6f1jcwy RvGFDuZSNbwOXOJLSaK8Ymu ZtvEm2piSs6lQpjTgobDMM4 Twt6AU0tbe93dex5iWywFWB ccwzjOuX0NBbnURBdruccQF n0ZFewPZAvsCV6SFXksZWlZ 2NtOGAdCJ5datd3JES8CHuc TQYsTkO4NYVvyCEhYHIzwIp jBUfhh962RLG1McMcVG2hB0 Ooo4T2oT6spBFfNHUrtIEdW aPmMTUvdd7svBDjNTmgx9Hu AVP6zvB1nOSuoEOuGBFfPgQ 4EGccWD4tgm48AKFcHYT9vp 5ybGNccGdicmRyaGVhZFxwZ 6AlTNQdd039IPFlW2YpFGXi f9Q8bdBsRfRsVGGehHT6sjI 4LBWpOZ1cnbqda4tfSBqfDS pjCGPimvT9meK6MVNvoTZyQ 4NuwM9sZEYoBD0fbdbew2kj LOT1SFmuWVIhWHT5ApRmSFX un1Qulik0PxGjj6ZrvREaAK ivV20pe225FTFvheXbX6lsc GFpblxwbGFpblxmMFxmczI0 WYIwZRhiashqETSfDOhyU8c sRfBaLQUxoIilMJbht5VxTX YdVEYePnWtoFUgVBWfPah0A FBdjGAaHHBsBcEnB5dcioqd RmKZOIYmk1cwO1xnaWMLaNV lJ7PdBTvdrcMpXUgyVYvcGL OiONA3RG5sXOBmEFXepo24 CPT Code(s) (test code n5mfwEWiZHBkgTA9RsQsDZW = 3354) dg0nzb1GwrSHsrMXaRJeteN TbrzJxep03nPH9iO10KI4jB AVxGuZ4WAMawwD7Dby0NAUr GRUgmECxC376o1azo0eracI yyFH8eMaeRIHdBLLoBEsnCY ZnPeBnYDfxALYzpFE4WSZlf wJ4HFUjM0jlLXIqwPIdgX== CLINICAL HISTORY (test x2vrnHBiZAMwjZX8CgGpTJG code = 3356) ao9zha2MlqNZjmMOlDCdigD VwmqQidq15eAD7iR51OM8kM ZLjIjD3FGPhrsA5Cbj0QAFo JJXfpBFfR006w2qgx8bminW abGW8dJrgQQQnPBKbWGkbBN PuDoXqMLXtsJxkLK69LP2ib 2AkUACvTV6zUU31TRKkNYNo vQ6sNUUvcHWsBL3eWCObMFD kZXIgXHBhcn0= SPECIMEN SOURCE (test a9hpyYHrYJJlyYK3YoViRCP code = 3377) nk8mic7LdeRTsiNMhJYqvyR TggiOlqd03iWT8iX70UV7hI PTgIjX6AKXoxrH3Fhc2VCYr ZHWbwOGeJ181z7szl3imotR bnJF1nOtxQXGlQDQcTKulGH AuNtZfGS0ePPCwMVHtFCIhf GluZSBCLiAgQmxhZGRlclxs hP7zRXVsRBVEsSDhHNYoISm srsWbWN2aTRDeKWBhOBJbkN luZSBFLiAgQmxhZGRlclxsa C9bYUZbAJIKqUMsWUAmMLly wnSxWz1tVSQyCGQrHHCfpIk cAPSUEhRuXNDey6BkoFWjlS FyfQ== GROSS DESCRIPTION i6pfoVJpLKOjiMUjXbTdQLC (test code = 3366) wIFFir7uiNYPhoZRfFbBgSn NcZnRuYmpcdWMxXGRlZmYwe 5bpz843fWZyu6xgRAVqWoR7 rKQdROHheKXyX289w6wsk7g wqgPgwZW9TXLmTPH3UAqgoy DfbmZ6HFkmnWLiJpZ6GWvfy qPeAHlrqyImhkViLfg4YXLd B505HFW7gQrbl5kbIFQ9ZUH nNGWxHwMePv4uzCVjX128KG OvHELDMPGgmQl3RHQycmSyp fCamRKWz593E731g7etZXNe onNsrJxGpjlaf3msM368NSO hcGVydzEyMjQwXHBhcGVyaD D6OQApJZ3iemkhKzUaMD3zy vqfHsOpKF9dtun0NvRdQD8d cmdiNzIwXGhlYWRlcnkwXGZ zf0QbeatoHE8sL0Wsw6U9aO 9maXRcZGVmdGFiNzIwXGZvc m6qlGGjCLkzx7MxKRO9hnQ8 kEFukXFzBCKoPN77Bwzau7P rJfrjXNI6HYAgrrFfc8Hzk6 wtMgHanqBwE9rzV9ZuYYVmJ QBnHXTsHnIpwyRoo4Iee1Go qLEonNu3z2eoLMSlBIOrhHh bp5xhHMF1MBVcV7T0sHVjb7 vdGZtbZHOodEV9ppenPZntJ OAqilY2ejnhVZtdEILfnUG0 adhdQHugLARlLxS4msraPMy pTIUyIUG8VItan180OSG9SF xzYmtwYWdlXHBnbmNvbnRcc GduZGVjXHBsYWluXHBsYWlu XGYwXGZzMjRccWxccGxhaW5 cNbQjHoWjCFmuVF7qHNXxN1 xzkJLrMWJgMENjO9zqBxXxj N6btMplSGomtdSqGOUkGQBZ FTHvnZEuOWEidrZqq2CnIEd pbiBsYWJlbGVkIHRoZSBwYX KsQA40Z0YcoaBgSUaoKYYjQ NNhzX4gUS92xEDhihBtzyGh CnDzmXvbwDCfiMV2pJ3pqkS yaWdodCBsYXRlcmFsIGJsYW ZbYGQfNVthAAHgBD1lLAewW O7jDEyvLL6aZQDcBRLvcu8m gZ5pGTQzi4E8HWBlzvJegSM qcUY7ePnwlWGsolUunYk4AX BdDWOngfJht7BkwXu0dQVsA SxrZZXwzN5kiT3uTXQrLINz cnslOCHhUv8aDIDoC9ZhcuU uOJmcINFpaz4ysRucFJeyMj VsZWQgdGhlIHBhdGllbnQnc kEtWQ1dMQGbO9Dpj0Kge34n bnVtYmVyIGFuZCAicmlnaHQ khA9yuBLtlX0nNKnccIhoUn vrPFHgssX8bH0lecXhNLKdR HPuiFKcZGQ6XfHwlsppr68l tOT2yDVdbATvPuYuU89bywQ xZR8fWVS3hpeaBcS1mEB4jg QmHqRmL30boK3jD4LxILGxx 4TdPQldKE6hxJ3uTDmmpOPb FTWzTRVsuBy4SSGcXPOjjrD hp9PqgJa7sSExWXjjMRAqiA 3pkR7sHOScGEFytqxeTDXzQ i4rITIuR9MfwvZtPMwsHKRa nx3yiTwhSQdtBtAhIWIjyFa iUDMgtBtjrgCfetWvIR4cEA CvE9Rbg9Ouc76wneXtYpVmS PCaSCLffP4qlABdeN3gUV5j ZGxpbmUgYmxhZGRlciIgaXM gYSAwLjIgeCAwLjIgeCAwLj SbD33qjHDaFINnmbltaHcyc 8HwUDDcHVhlZT46AYvflZNs IGlzIGZpbHRlcmVkIGFuZCB mvEZayPM2HZQmnT6prS98cz EdfvGHOF4ngMYsPALkfaLVX sXsFySjXDv9JBHdsW4eBm1y pFYukK4qrUJuIWqeVHP0jIB czIY6sYEuzUyuYZ4byUFuVU SoH7Onj6qfjoCqnP6hBSIhW U4gUERmPCT9BYfrlJZuZEdq LxmfCTQbriJznT7ts7zmKMf yWYLcXI8nPAyhNH4eVNmfMH 6yBAEzKFCqcy1ljW9gWUTbv 4A2SHNobtKnsSCliTG5gOwe wDBmhiVqnDl0SMIrDEOwuxN iz2OszHy5fVKfGHbtKIHmkT 8baI2qNDZqHCXuxakjVISuK M2hSXYxJ9TanmTyIKeoWRKd gu0ceFnnVXkbHiLnKXHcnMp gAVKxaUrzueIgcjXlVR4tBR SsT1Fxf8Ega21gxoHhTtZzU VNqDOCoQmghXJXsywWql05h UsLxsyJeDNExDmA2OAQyZbX 1RXKfJrGlvGA2NK6rwJxoij Q7iZRngYHlQxGbW81kblZoj 1rnI9tfzMBoCvfohVBvXDOd RM4pWWV5Xp3ylAKzPYElcfD 4a0ZwIFhxEFQhXafjLLShxE FyIEYuICBSZWNlaXZlZCBpb tKfb3LkWMzmizReHOCzhOYd LBUfOOYqEXJyXC07Z2WvebL uLOzkVSXmSCYdaP3mBJ52zM OzinNmphKsNzJqV4g4RPmcq IJhWSsgWxfjIATibrZhmR0n b9xbPGzzUAHbCH0kPKurJC8 rRTnhAX0oTGRsPYNqfr5qpV 8oHANre8Z6HUFfzwRmfPBsj ND5fErxvKZevsZitIn8PGQn YYWllpFvn4SfyCg8nGZdWVv yUBVjuZ1niB4rNxJdZFBvxy ocQUOzEj2dKITmI3GotjCqB KhjLCIojf5kiQmiIPbeEePr ZWQgdGhlIHBhdGllbnQncyB wCJ8vIVOpK2Kxt0Swf18qon VtYmVyIGFuZCAiYmxhZGRlc nP5myxxt15tQrXnmiMlVCMd PhR7QRXsQfO4KZFpWMWqlIM 3DX6qwPuzzvF9gEGqgAUgPt GpU59obgRlo6cdT6qxzWHsH sbasISbKXRyLR2sVKM1Gs4g wDNoNYSmayL0u1PfBBxxRCc xLlxwYXJccGFyIEguICBSZW PqeYTdFGJwswEwv3NpOFekc iBsYWJlbGVkIHRoZSBwYXRp GV93E4UwysOyZIjuDQCkFVJ qyO7xMM64mZIsvjBtmgNiCk Oxh9N3GPDjUkS2ubD3qDBnC qLkwhAqIlW0YQ1aypRkBtZa oMQ0hBKchNEiRN0sTFZ9lcg eVzQ9oLH5fnGhPgfhZ04nxG 9lI2ErFRJaz3FsPImsPY9ql K8eZVtmbAOhAJMjTHCmiLl0 PLIrEZVegaJgg0VefQk6jWR oLKomIPUglW6myM3uYMVtLW BhclxwYXIgUGlsYXIgQXJnd WVsbGVzLCBQQSwgSFQgKEFT F3XdTZYhwa6= MICROSCOPIC h4xknRHnHYGutDG0LlWlEQZ DESCRIPTION (test code in8dzw2UuwOXmzLJnEIyswY = 3371) LidtZelq80dNY1oQ11SL9kH UZcQeO9QPSezaO0Zea0LQJj UNDebFIjY336c2jpo2wxnwN lmAI7gBojHPTiYOTqMEibCC VvJyIjECJnCr6ekRXoWdEbw GFyfQ== Gross assessment was [facility] performed at ([facility], code = 2777) Department of Pathology, [address] [place] [address], Technical component [facility] was performed at ([facility], code = 2778) Department of Pathology, [address] [place] [id number], Professional component [facility] was performed at ([facility], code = 2779) Department of Pathology, [address] [place] [address], [facility] [id number] 16:36:00Surgical Pathology Report Case: [id number] Authorizing Provider: Kaleb Barnes MD Collected: 08/26/2020 02:35 PM Ordering Location: [facility] PERI[facility] Received: 08/26/2020 03:53 PM SERVICES Pathologist: Torres Carias MD Specimens: A) -Bladder Tumor, TUR PAPILLARY TUMOR RIGHT LATERAL B) - Bladder Tumor, RE- RESECTION OF RIGHT POSTERIOR WALL TUMOR C) - Bladder Biopsy, POSTERIOR MIDLINE D) - Bladder Biopsy, LEFT LATERAL E) - Bladder Biopsy, DOME F) - Bladder Biopsy, RIGHT LATERAL G) - Bladder Biopsy, TRIGONE H) - Prostatic, TUR PROSTATIC URETHRA A. 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 BLADDER, POSTERIOR MIDLINE, BIOPSY: - NO PATHOLOGIC DIAGNOSIS - MUSCULARIS PROPRIA IS NOT PRESENTD. BLADDER, LEFT LATERAL, BIOPSY: - NO PATHOLOGIC DIAGNOSIS - MUSCULARIS PROPRIA IS PRESENTE. BLADDER, DOME, BIOPSY: - NO PATHOLOGIC DIAGNOSIS - MUSCULARIS PROPRIA IS PRESENTF. BLADDER, RIGHT LATERAL, BIOPSY: - UROTHELIAL CARCINOMA IN SITU - MUSCULARIS PROPRIA IS PRESENTG. BLADDER, TRIGONE, BIOPSY: - MILD CHRONIC INFLAMMATION, NEGATIVE FOR DYSPLASIA OR MALIGNANCY - MUSCULARIS PROPRIA IS PRESENTH. PROSTATIC URETHRA, TRANSURETHRAL BIOPSY - BENIGN PROSTATIC TISSUE - NEGATIVE FOR DYSPLASIA OR MALIGNANCY Signing Pathologist Direct Phone Line: [phone] signed by Torres Carias MD on 08/29/2020 at 4:36 [id number] neoplasm of overlapping sites of bladder A. BladderB. BladderC. BladderD. BladderE. BladderF. BladderG. BladderH.ProstateA. Received in formalin labeled the patient's name, accession number and "papillary tumor right lateral bladder" is a 0.3 x 0.2 x 0.1 cm payne-pink tissue fragment which is filtered and submitted in toto in A1.B. Received in formalin labeled the patient's name, accession number and "right posterior wall bladder tumor" are 3 payne rubbery soft tissue fragments measuring up to 1.0 cm in greatest dimension which are filtered and submitted in toto in D1.C. Received in formalin labeled the patient's name, accession number and "posterior midline bladder" is a 0.2 x 0.2 x 0.1 cm payne-pink tissue fragment which is filtered and submitted in toto in C1.D. Received in formalin labeled the patient's name, accession number and "left lateral bladder biopsy" is a 0.3 x 0.2 x 0.2 cm payne-pink tissue fragment which is filtered and submitted in toto in D1.E. Received in formalin labeled the patient's name,accession number and "bladder dome" is a 0.2 x 0.2 x 0.2 cm payne-pink tissue fragment which is filtere d and submitted in toto in E1.F. Received in formalin labeled the patient's name, accession number and "right lateral bladder biopsy" is a 0.3 x 0.2 x 0.1 cm payne-pink tissue fragment which is filteredand submitted in toto in F1.G. Received in formalin labeled the patient's name, accession number and "bladder trigone" is a 0.2 x 0.2 x 0.1 cm payne-pink tissue fragment which is filtered and submitted in toto in G1.H. Received in formalin labeled the patient's name, accession number and "prostatic urethra" are 2 payne rubbery tissues measuring up to 0.7 cm in greatest dimension which are filtered and submitted in toto in H1.WHIT Lees, HT (ASCP)Performed. [facility], Department of Pathology, [address] [place] [id number], [facility], [facility], [address] [place] [id number], [facility], [facility] of [facility], [address] [place] [id number], YKN 12 [id number] 16:01:41Interface, External Ris In - 08/29/2020 4:01 PM CDTVentricular Rate 67 BPMAtrial Rate 67 BPMP-R Interval 150 msQRS Duration 76 msQ-T Interval 378 msQTC Calculation(Bazett) 399 msP [place] 66 degreesR [place] 62 degreesT [place] 57 degreesNormal sinus rhythmNormal ECGNo previous ECGs availableConfirmed by MD SHAISTA, PILLO ([id number]) on 08/29/2020 4:01:39 [facility] [id number] 18:00:00 Test Item Value Reference Range Interpretation Comments Cytology (test code = See Separate Report 2629) [facility] [id number] 18:00:00 Test Item Value Reference Range Interpretation Comments CYTOLOGY RESULT POINTER See Separate Report (BEAKER) (test code = 2629)
--- NOTE | 2020-10-05 16:45 | RAD REPORT ---
EXAM DESCRIPTION: CT - Head Brain Wo Cont - 10/05/2020 4:24 pm CLINICAL HISTORY: Syncope COMPARISON: None. TECHNIQUE: Computed axial tomography of the head was obtained. IV contrast was not requested. All CT scans are performed using dose optimization technique as appropriate and may include automated exposure control or mA/KV adjustment according to patient size. FINDINGS: An intracranial bleed is not seen . The ventricles are normal in caliber. No extra-axial fluid collection is noted. Fluid within the sinuses/ mastoids is not seen. IMPRESSION: No acute intracranial abnormality is seen. If patient's symptoms persist MRI of the bra in would be recommended.
[2020-10-05 17:19] LABS: Absolute Lymphocytes (CBC) 1.1 K/uL (0.7-4.9); Basophils % 0.4 % (0-1.3); Hematocrit 37.2 % (39.6-49.0); Lymphocytes % 27.7 % (15.3-44.8); MPV 10.3 fL (7.6-11.3); RBC Red Blood Cell Count 3.94 M/uL (4.33-5.43)
[2020-10-05 17:26] LABS: Protime INR 1.09
[2020-10-05 17:36] LABS: ALT/SGPT 41 U/L (12-78); AST/SGOT 13 U/L (15-37); Albumin 3.2 g/dL (3.4-5.0); Alkaline Phosphatase 96 U/L (45-117); BUN Blood Urea Nitrogen 15 mg/dL (7-18); Bicarbonate 26 mmol/L (21-32); Bilirubin Direct 0.2 mg/dL (0-0.2); Bilirubin Total 0.8 mg/dL (0.2-1.0); Glucose Level 115 mg/dL (74-106); NT PRO-BNP 18 pg/mL (<125); Potassium 4.2 mmol/L (3.5-5.1); Protein, Total 6.2 g/dL (6.4-8.2); Sodium Level 136 mmol/L (136-145)
[2020-10-05 17:53] LABS: Blood Morphology Comment NOT SEEN (NOT SEEN); Platelet Estimate DECR; White Blood Cell Scan OK (OK)
[2020-10-05] MEDS ORDERED: NA CHLORIDE 0.9% 1,000 ML ONE (18:21)
[2020-10-05] MEDS ORDERED: LOPERAMIDE HCL 2 MG CAPSULE ONE (19:02)
--- NOTE | 2020-10-05 20:01 | ER ---
Nurse's Notes [facility] Name: Emanuel Philippe Jr Age: 60 yrs Sex: Male : 1960 Arrival Date: 10/05/2020 Time: 15:39 Bed 27 Private MD: Diagnosis: Orthostatic hypotension Presentation: 10/05 15:39 Chief complaint: EMS states: patient was at [facility] in a patient room. zb He had a syncope episode and possible seizure, witness by one of the providers. provider witness unresponsiveness and trembling. + LOC and episode of incontinence that last approximately 10 sec. Patient was on the bed, did not fall or hit his head. Patient has a history of seizure does not take any medication at this time. Coronavirus screen: At this time, the client does not indicate any symptoms associated with coronavirus-19. Ebola Screen: No symptoms or risks identified at this time. Initial Sepsis Screen: Does the patient meet any 2 criteria? No. Patient's initial sepsis screen is negative. Does the patient have a suspected source of infection? No. Patient's initial sepsis screen is negative. Risk Assessment: Do you want to hurt yourself or someone else? Patient reports no desire to harm self or others. Onset of symptoms was October 05, 2020. 15:39 Acuity: REYNALDO 3 zb 15:39 Method Of Arrival: EMS: [facility] zb 15:39 Care prior to arrival: Medication(s) given: Normal saline infusion, 1000 mL. zb Triage Assessment: 15:46 General: Appears in no apparent distress. comfortable, Behavior is cooperative, zb agitated. Pain: Denies pain. Neuro: Level of Consciousness is awake, alert, obeys commands, Oriented to person, place, time, situation, Moves all extremities. Full function Denies blurred vision numbness headache photophobia diplopia, Seizure activity reported prior to arrival. Neuro: Reports a syncopal episode. Cardiovascular: Reports None. Cardiovascular: Patient's skin is warm and dry. Respiratory: No deficits noted. Denies shortness of breath. Respiratory: Breath sounds are clear bilaterally. GI: Abdomen is round. GI: Reports nausea, since chronic due to chemo. Derm: Skin is intact, is healthy with good turgor, Skin is dry, Skin is normal. Musculoskeletal: Circulation, motion, and sensation intact. Range of motion: intact in all extremities. Historical: - Allergies: 15:46 No Known Allergies; zb - Home Meds: 15:46 carvedilol 12.5 mg oral tab 1 tab 2 times per day [Active]; losartan 100 mg oral tab 1 zb tab once daily [Active]; atorvastatin 20 mg oral tab 1 tab once daily [Active]; Valium 5 mg Oral tab [Active]; ondansetron HCl 4 mg Oral tab [Active]; dexamethasone 4 mg Oral tab [Active]; - PMHx: 15:46 Bladder cancer; Sleep Apnea; Hypertension; Hyperlipidemia; zb - PSHx: 15:46 Appendectomy; Cholecystectomy; zb - Immunization history:: Adult Immunizations up to date. - Social history:: Smoking status: Patient reports the use of cigarette tobacco products, smokes one-half pack cigarettes per day. Screenin:40 Abuse screen: Denies threats or abuse. Denies injuries from another. Nutritional zb screening: No deficits noted. Tuberculosis screening: No symptoms or risk factors identified. Fall Risk No fall in past 12 months (0 pts). Secondary diagnosis (15 points) seizures, IV access (20 points). Ambulatory Aid- None/Bed Rest/Nurse Assist (0 pts). Gait- Normal/Bed Rest/Wheelchair (0 pts) Mental Status- Oriented to own ability (0 pts). Total Rowe Fall Scale indicates Low Risk Score (25-44 pts). Fall prevention measures have been instituted. Side Rails Up X 2 Placed close to Nursing Station Frequent Obs/Assesments occuring As available Patient and Family Educated on Fall Prevention Program and strategies. Assessment: 15:40 Reassessment: See triage assessment. zb 16:40 Reassessment: Patient appears in no apparent distress at this time. Patient and/or zb family updated on plan of care and expected duration. Pain level reassessed. Patient is alert, oriented x 3, equal unlabored respirations, skin warm/dry/pink. no current seizure activity. IV fluid is infusing. 17:30 Reassessment: Patient appears in no apparent distress at this time. Patient and/or zb family updated on plan of care and expected duration. Pain level reassessed. Patient is alert, oriented x 3, equal unlabored respirations, skin warm/dry/pink. patient able to ambulate to restroom. at bedside. 18:40 Reassessment: Patient appears in no apparent distress at this time. Patient and/or zb family updated on plan of care and expected duration. Pain level reassessed. Patient is alert, oriented x 3, equal unlabored respirations, skin warm/dry/pink. patient c/o of diarrhea notified ECP. medications ordered. IV fluids continue to infuse. 18:51 Neuro: Level of Consciousness is awake, alert, obeys commands, Oriented to person, zb place, time, situation, Forest Ranger are equal bilaterally Moves all extremities. Full function Gait is steady, Pupils are PERRLA. Cardiovascular: Rhythm is regular. Vital Signs: 15:39 BP 95 / 69; Pulse 75; Resp 16; Temp 97.7(O); Pulse Ox 97% on R/A; Weight 110.22 kg; zb Height 6 ft. 2 in. (187.96 cm); Pain 0/10; 16:45 BP 122 / 76; Pulse 73; Resp 16; Pulse Ox 98% on R/A; zb 17:50 BP 125 / 72 Supine; Pulse 72; Resp 16; Pulse Ox 100% on R/A; zb 17:52 BP 118 / 81 Sitting; Pulse 89; Resp 16; Pulse Ox 98% on R/A; zb 17:54 BP 98 / 58 Standing; Pulse 92; Resp 16; Pulse Ox 100% on R/A; zb 19:41 BP 125 / 64 Supine; Pulse 95; ak2 19:41 BP 118 / 72 Sitting; Pulse 95; ak2 19:41 BP 119 / 67 Standing; Pulse 96; ak2 15:39 Body Mass Index 31.20 (110.22 kg, 187.96 cm) zb ED Course: 15:39 Patient arrived in ED. zb 15:43 Triage completed. zb 15:44 Arnel Cook PA is PHCP. jr8 15:44 Nicolas Black MD is Attending Physician. jr8 16:20 Claire Mnuiz RN is Primary Nurse. zb 16:20 Arm band placed on. EKG completed in triage. Results shown to MD. zb 16:23 CT Head Brain wo Cont In Process Unspecified. EDMS 18:51 Patient has correct armband on for positive identification. infrastructure technician on. Pulse zb ox on. NIBP on. Door closed. Noise minimized. 20:33 IV discontinued. ak2 20:33 No provider procedures requiring assistance completed. ak2 Administered Medications: 18:06 Drug: NS 0.9% 1000 ml {Note: R side .} Route: IV; Rate: 1000 ml; Site: Port-a-cath; zb 18:45 Drug: Imodium A-D (loperamide) 4 mg Route: PO; zb Point of Care Testing: Blood Glucose: 16:00 Blood Glucose: 115 mg/dL; zb Ranges: Outcome: 20:01 Discharge ordered by MD. powers 20:33 Discharged to home ambulatory. ak2 20:33 Condition: stable 20:33 Discharge instructions given to patient, family. 20:34 Patient left the ED. ak2 Signatures: Dispatcher [employer] EDMS Arnel Cook PA PA jr8 Brown, Zipporah RN RN Willem Wolfe ak2
--- NOTE | 2020-10-05 20:02 | EDPHYS ---
Physician Documentation [facility] Name: Emanuel Philippe Jr Age: 60 yrs Sex: Male : 1960 Arrival Date: 10/05/2020 Time: 15:39 Bed 27 Private MD: DEACON Physician Nicolas Black HPI: 10/05 17:17 This 60 yrs old Male presents to ER via EMS with complaints of Syncope, jr8 Probable Seizure. 17:17 Onset: The symptoms/episode began/occurred acutely, today. Duration: This was a single jr8 episode, that lasted 10 second(s). Context: the episode(s) was witnessed, medical staff, occurred [facility], occurred while the patient was at rest, Just prior to the episode the patient experienced dizziness. Associated injury: The patient did not suffer any apparent associated injury. Associated signs and symptoms: The patient has no apparent associated signs or symptoms. Current symptoms: Currently, the patient is not experiencing any symptoms, the patient feels back to baseline, no decreased level of consciousness, no confusion, no dysphasia, no headache, no paralysis, no visual changes. The patient has experienced similar episodes in the past, a few times. The patient has been recently seen by a physician:. Patient stated that he currently is undergoing chemotherapy for bladder cancer. Had f/u appointment with his oncologist today. While in clinic started to feel dizzy and then had what appeared to be seizure like episode . Historical: - Allergies: 15:46 No Known Allergies; zb - Home Meds: 15:46 carvedilol 12.5 mg oral tab 1 tab 2 times per day [Active]; losartan 100 mg oral tab 1 zb tab once daily [Active]; atorvastatin 20 mg oral tab 1 tab once daily [Active]; Valium 5 mg Oral tab [Active]; ondansetron HCl 4 mg Oral tab [Active]; dexamethasone 4 mg Oral tab [Active]; - PMHx: 15:46 Bladder cancer; Sleep Apnea; Hypertension; Hyperlipidemia; zb - PSHx: 15:46 Appendectomy; Cholecystectomy; zb - Immunization history:: Adult Immunizations up to date. - Social history:: Smoking status: Patient reports the use of cigarette tobacco products, smokes one-half pack cigarettes per day. ROS: 18:59 Eyes: Negative for injury, pain, redness, and discharge, ENT: Negative for injury, jr8 pain, and discharge, Neck: Negative for injury, pain, and swelling, Cardiovascular: Negative for chest pain, palpitations, and edema, Respiratory: Negative for shortness of breath, cough, wheezing, and pleuritic chest pain, Abdomen/GI: Negative for abdominal pain, nausea, vomiting, diarrhea, and constipation, Back: Negative for injury and pain, MS/Extremity: Negative for injury and deformity, Skin: Negative for injury, rash, and discoloration. 18:59 Neuro: Positive for seizure activity, syncope. Exam: 18:59 Constitutional: This is a well developed, well nourished patient who is awake, alert, jr8 and in no acute distress. Head/Face: Normocephalic, atraumatic. Eyes: Pupils equal round and reactive to light, extra-ocular motions intact. Lids and lashes normal. Conjunctiva and sclera are non-icteric and not injected. Cornea within normal limits. Periorbital areas with no swelling, redness, or edema. ENT: Nares patent. No nasal discharge, no septal abnormalities noted. Tympanic membranes are normal and external auditory canals are clear. Oropharynx with no redness, swelling, or masses, exudates, or evidence of obstruction, uvula midline. Mucous membranes moist. Neck: Trachea midline, no thyromegaly or masses palpated, and no cervical lymphadenopathy. Supple, full range of motion without nuchal rigidity, or vertebral point tenderness. No Meningismus. Chest/axilla: Normal chest wall appearance and motion. Nontender with no deformity. No lesions are appreciated. Cardiovascular: Regular rate and rhythm with a normal S1 and S2. No gallops, murmurs, or rubs. Normal PMI, no JVD. No pulse deficits. Respiratory: Lungs have equal breath sounds bilaterally, clear to auscultation and percussion. No rales, rhonchi or wheezes noted. No increased work of breathing, no retractions or nasal flaring. Abdomen/GI: Soft, non-tender, with normal bowel sounds. No distension or tympany. No guarding or rebound. No evidence of tenderness throughout. Back: No spinal tenderness. No costovertebral tenderness. Full range of motion. Skin: Warm, dry with normal turgor. Normal color with no rashes, no lesions, and no evidence of cellulitis. MS/ Extremity: Pulses equal, no cyanosis. Neurovascular intact. Full, normal range of motion. Neuro: Awake and alert, GCS 15, oriented to person, place, time, and situation. Cranial nerves II-XII grossly intact. Motor strength 5/5 in all extremities. Sensory grossly intact. Cerebellar exam normal. Normal gait. Vital Signs: 15:39 BP 95 / 69; Pulse 75; Resp 16; Temp 97.7(O); Pulse Ox 97% on R/A; Weight 110.22 kg; zb Height 6 ft. 2 in. (187.96 cm); Pain 0/10; 16:45 BP 122 / 76; Pulse 73; Resp 16; Pulse Ox 98% on R/A; zb 17:50 BP 125 / 72 Supine; Pulse 72; Resp 16; Pulse Ox 100% on R/A; zb 17:52 BP 118 / 81 Sitting; Pulse 89; Resp 16; Pulse Ox 98% on R/A; zb 17:54 BP 98 / 58 Standing; Pulse 92; Resp 16; Pulse Ox 100% on R/A; zb 19:41 BP 125 / 64 Supine; Pulse 95; ak2 19:41 BP 118 / 72 Sitting; Pulse 95; ak2 19:41 BP 119 / 67 Standing; Pulse 96; ak2 15:39 Body Mass Index 31.20 (110.22 kg, 187.96 cm) zb MDM: 15:44 Patient medically screened. [facility] 10/06 15:35 Data reviewed: vital signs, nurses notes, lab test result(s), EKG, radiologic studies, [facility] CT scan, plain films. Data interpreted: Pulse oximetry: on room air is 100 %. Counseling: I had a detailed discussion with the patient and/or guardian regarding: the historical points, exam findings, and any diagnostic results supporting the discharge/admit diagnosis, lab results, radiology results. 10/05 16:07 Order name: Basic Metabolic Panel; Complete Time: 18: [facility] 10/05 16:07 Order name: CBC with Diff; Complete Time: 18:10/05 16:07 Order name: LFT's; Complete Time: 18: [facility] 10/05 16:07 Order name: Magnesium; Complete Time: 18: 10/05 16:07 Order name: NT PRO-BNP; Complete Time: 18:01 8 10/05 16:07 Order name: PT-INR; Complete Time: 17:34 10/05 16:07 Order name: EKG; Complete Time: 16:07 10/05 16:07 Order name: Cardiac monitoring; Complete Time: 17:06 8 10/05 16:07 Order name: EKG - Nurse/Tech; Complete Time: 17:05 10/05 16:07 Order name: IV Saline Lock; Complete Time: 17:05 [facility] 10/05 16:07 Order name: CT Head Brain wo Cont; Complete Time: 17:15 10/05 17:53 Order name: CBC Smear Scan [facility] 10/05 16:07 Order name: Labs collected and sent; Complete Time: 17:06 10/05 16:07 Order name: O2 Per Protocol; Complete Time: 17:06 8 10/05 16:07 Order name: O2 Sat Monitoring; Complete Time: 17:06 10/05 16:07 Order name: Orthostatics; Complete Time: 17:56 Administered Medications: 10/05 18:06 Drug: NS 0.9% 1000 ml {Note: R side .} Route: IV; Rate: 1000 ml; Site: Port-a-cath; zb 18:45 Drug: Imodium A-D (loperamide) 4 mg Route: PO; zb Point of Care Testing: Blood Glucose: 16:00 Blood Glucose: 115 mg/dL; zb Ranges: Critical Glucose Levels:Adult <50 mg/dl or >400 mg/dl <40 mg/dl or >180 mg/dl Disposition: 10/06 09:28 Co-signature as Attending Physician, Nicolas Black MD I agree with the assessment and iris plan of care. Disposition: 10/05/20 20:01 Discharged to Home. Impression: Orthostatic hypotension. - Condition is Stable. - Discharge Instructions: Orthostatic Hypotension. - Medication Reconciliation Form, Thank You Letter, Antibiotic Education, Prescription Opioid Use form. - Follow up: Private Physician; When: 1 - 2 days; Reason: Recheck today's complaints, Continuance of care, Re-evaluation by your physician. - Problem is new. - Symptoms have improved. Signatures: Dispatcher [employer] EDNicolas Cleveland MD MD cha Roszak, Josh, PA PA jr8 Claire Muniz, RN RN Willem Wolfe Corrections: (The following items were deleted from the chart) 10/05 20:34 20:01 10/05/2020 20:01 Discharged to Home. Impression: Orthostatic hypotension. ak2 Condition is Stable. Forms are Medication Reconciliation Form, Thank You Letter, Antibiotic Education, Prescription Opioid Use. Follow up: Private Physician; When: 1 - 2 days; Reason: Recheck today's complaints, Continuance of care, Re-evaluation by your physician. Problem is new. Symptoms have improved. jr8
[2020-10-05 21:02] VITALS: TEMP 97.7
[2020-10-05 21:08] VITALS: O2SAT 100
[2020-10-05 21:09] VITALS: BP 119/67
== END 2020-10-05 20:34 | disposition home or self-care (01) ==
LOC: ER 15:33
DX: I95.1 Orthostatic hypotension (principal); C67.9 Malignant neoplasm of bladder, unspecified; I10 Essential (primary) hypertension; F17.210 Nicotine dependence, cigarettes, uncomplicated
CPT/HCPCS: 85025; 80048; 36415; 83735; 85610; 80076; 83880; 70450; J7030; 99284

== ENCOUNTER 2021-04-11 11:21 | Day surgery (SDC) | payer OTHER ==
[2021-04-11] MEDS ORDERED: Ringers Lactate 1,000 ML IV ONE (11:49)
[2021-04-11] MEDS ORDERED: MIDAZOLAM HCL 2 MG/2 ML INJ ONE (13:32)
[2021-04-11] MEDS ORDERED: propofoL 200 MG/20 ML VIAL IV ONE (13:32)
[2021-04-11] MEDS ORDERED: FENTANYL CITR 100 MCG/2 ML ONE (13:32)
[2021-04-11] MEDS ORDERED: LIDOCAINE 2% MPF 5 ML VIAL ONE (13:32)
[2021-04-11] MEDS ORDERED: BUPIVACAINE 0.25% PF 30 ML VIAL ONE (13:39)
[2021-04-11] MEDS: CEFAZOLIN/NS 1gm 1 GM/50 ML BAG ONE ×2 (14:01→14:05)
[2021-04-11] MEDS ORDERED: EPHEDRINE SULF 50 MG/ML VIAL ONE (14:09)
--- NOTE | 2021-04-11 14:28 | P.OP ---
Preoperative diagnosis: Attention to Chemotherapy Port Postoperative diagnosis: Attention to Chemotherapy Port Primary procedure: Removal of RIGHT IJ Port a cath Anesthesia: MAC + Local Estimated blood loss: <5cc Specimen: cath for id only Findings: no signs of infection Complications: None Transferred to: Recovery Room Condition: Good
[2021-04-11 15:09] VITALS: O2SAT 98
[2021-04-11 17:41] VITALS: BP 120/74; TEMP 96.8
--- NOTE | 2021-04-11 20:22 | OP ---
Date of Procedure: 04/11/2021 Surgeon: Dustin Cain MD, Preoperative Diagnosis: to chemotherapy port placement. Postoperative Diagnosis: chemotherapy port placement. Procedure Performed: Removal of right internal jugular Port-A-Cath. Anesthesia: MAC plus local with 0.25% Marcaine. Estimated Blood Loss: 5 mL. Specimen: Catheter for ID only. Findings: No signs of infection. Complications: None. Disposition: The patient was transferred to recovery room in good condition. Procedure In Detail: After informed was obtained, the patient was brought to the operating room, pre pped and draped in the usual sterile fashion. After adequate anesthesia was achieved, the patient wa s placed in steep Trendelenburg position. The area overlying his right Port-A-Cath was anesthetized with 0.25% Marcaine, sharply incised with a 15 blade down to subcutaneous tissues. Electrocautery wa s used to dissect down to the port. Port was identified. The previously placed Prolene sutures were identified, cut with sutures, and the catheter was then removed at this point, sent for ID. The pat ient was positioned in the reverse Trendelenburg position and no evidence of bleeding was ongoing. T he area was copiously irrigated at this point. No additional hemostatic measures required. The area was irrigated one last time. Deep dermal planes were closed with 3-0 Vicryl in interrupted fashion and skin was closed with 4-0 Monocryl in a running fashion. Dermabond was placed over top. The estee ent tolerated the procedure well without evidence of complication and transferred to PACU in good condition. All count s correct at the end of the case. TK/MODL Voice ID: [id number] Report ID: [id number]
== END 2021-04-11 15:45 | disposition home or self-care (01) ==
LOC: OR 11:21
PROVIDERS: ATTEND Surgery
PROC: 0JPT0WZ Removal of Totally Implantable Vascular Access Device from Trunk Subcutaneous Tissue and Fascia, Open Approach (ICD-10-PCS; principal; 2021-04-11 12:00)
DX: Z45.2 Encounter for adjustment and management of vascular access device (principal); Z85.038 Personal history of other malignant neoplasm of large intestine; C67.9 Malignant neoplasm of bladder, unspecified; Z20.822 Contact with and (suspected) exposure to COVID-19
CPT/HCPCS: 88300; 36590; U0003; J2704; J2250; J3010; J0690; J7120